=== PATIENT | male | born 1955 | race Caucasian/White ===

== ENCOUNTER 2017-03-07 07:28 | Day surgery (SDC) | payer OTHER ==
[2017-03-06 08:13] VITALS: BMI 28.7
[~2017-03-07 07:28] MED LIST: DEXAMETHASONE SOD PHOSPHATE 10 MG/ML 1 ML VIAL IV ONE; HEPARIN SODIUM,PORCINE 5,000 UNIT/ML 1 ML VIAL SQ ONE; HYDROmorphone 1 MG/ML 1 ML SYRINGE IVP PRN; LIDOCAINE 1% 20 ML VIAL (10MG/ML) FOR IV START INTRADERMA PRN; MIDAZOLAM 2 MG/2 ML VIAL IV PRN; ONDANSETRON 4 MG/2 ML VIAL IVP ONE; SCOPOLAMINE 1.5MG/72HR PATCH TRANSDERM ONE; ceFAZolin 2 GM in SODIUM CHLORIDE 0.9% 100 ML IVPB ONE
[2017-03-07] MEDS: LACTATED RINGERS 1,000 ML IV SCH (07:45)
[2017-03-07] MEDS ORDERED: SUCCINYLCHOLINE CHLORIDE 100 MG/5 ML SYR IV ONE (08:50)
[2017-03-07] MEDS ORDERED: PROPOFOL 10 MG/ML 20 ML VIAL IV ONE (08:50)
[2017-03-07] MEDS ORDERED: HYDROmorphone (PF) 1 MG/ML ONE (08:50)
[2017-03-07] MEDS ORDERED: GLYCOPYRROLATE 0.2 MG/ML 2 ML VIAL ONE (08:50)
[2017-03-07] MEDS ORDERED: ROCURONIUM BROMIDE 10 MG/ML 10 ML VIAL IV ONE (08:50)
[2017-03-07] MEDS ORDERED: NEOSTIGMINE 1 MG/ML 10 ML VIAL ONE (08:50)
[2017-03-07] MEDS ORDERED: LIDOCAINE 1% INJ 10MG/ML (20 ML MDV) ONE (08:50)
[2017-03-07] MEDS ORDERED: fentaNYL (PF) 50 MCG/ML 2 ML AMP ONE (08:50)
[2017-03-07] MEDS ORDERED: ePHEDrine 50 MG/ML 1 ML AMP ONE (08:50)
[2017-03-07] MEDS ORDERED: MIDAZOLAM 2 MG/2 ML VIAL ONE (08:50)
[2017-03-07] MEDS ORDERED: BUPIVACAIN-EPI 0.25%-1:200,000 30 ML VIAL SQ ONE ×2 (09:23)
[2017-03-07 11:19] VITALS: TEMP 99.2
[2017-03-07 11:22] VITALS: RESP 18
--- NOTE | 2017-03-07 11:25 | P.OP ---
Date of Procedure: 03/07/17 Preoperative Diagnosis: Left inguinal hernia Postoperative Diagnosis: Left sliding inguinal hernia containing sigmoid colon Procedure(s) Performed: Robotic assisted laparoscopic left inguinal hernia repair with mesh Implants: Covidien progrip Anesthesia: CISCO local Surgeon: Nupur Hoffman Pathology: none sent Condition: stable Disposition: PACU Indications for Procedure: 61 years old male presents with left inguinal hernia. Informed consent obtained and he elected to undergo robotic-assisted laparoscopic left inguinal hernia repair with mesh possible bilateral. Operative Findings: Left large indirect inguinal hernia containing sigmoid colon Description of Procedure: The patient was brought to the operating room and placed in supine position. General anesthesia with endotracheal intubation was performed as per anesthesia team. Both arms were tucked against the abdominal wall and was positioned in lithotomy using yellowfin stirrups. A mejia catheter was inserted under sterile aseptic precautions. Chlorhexidine was used to prep the skin followed by application of sterile drapes and Ioban dressing. A timeout was performed to verify correct patient, correct procedure and correct side. Patient was confirmed to receive perioperative IV antibiotics, subcutaneous heparin 5000 units and bilateral SCDs were placed. A 2 mm skin incision was made in the left subcostal area and Veress needle was inserted to establish pneumoperitoneum to a pressure of 15 mmHg. A 1.5 cm supraumbilical incision was made which was deepened through the subcutaneous tissue . Two additional 8 mm skin incisions were made on either side of the midline approximately 8 cm away. A 5 mm 30 laparoscope was used to enter the peritoneum using direct Optiview technique. A 12 mm robotic trocar was inserted in the subumbilical area and 8 mm robotic trocars were inserted on either side of the midline. The patient was placed in Trendelenburg position and the robot was brought in between the legs. The robotic arms including the camera arm were docked on the trocars. The robotic prograsp and monopolar scissors were introduced via arm 1 and 2 respectively. Upon inspection of the peritoneal cavity, left indirect hernia was identified containing the sogmoid colon which was reduced using gentle traction and countertraction.The jones anatomical landmarks including the pubic symphysis, median and medial umbilical ligaments and bilateral epigastric vessels were identified. No direct or indirect hernia noted on the right side Using monopolar scissors a peritoneal flap was created extending medially from the median umbilical ligament and laterally to the direct hernia space. Using gentle traction and countertraction the flap was developed posteriorly. Loose fibrofatty tissue was bluntly dissected. Medially the dissection was carried along the Javid's ligament till pubic tubercle was identified. Care was taken to stay away from the urinary bladder. Dissection was carried out to leave the epigastric vessels against the anterior abdominal wall and laterally beyond the hernia defect. The direct hernia sac was completely reduced. The iliofemoral vessels were identified. The peritoneal reflection overlying the spermatic cord was also dissected off. Care was taken not to injure any gonadal vessels or spermatic cord. Enough inferior dissection was carried out 2 cm below the hernia defect. No indirect hernia noted. Laparoscopic Covidien progrip mesh was rolled and introduced through the 12 mm camera port. The rleft mesh was placed in the preperitoneal cavity with green portion overlying the pubic tubercle . The mesh was rolled upwards so that the mesh covered the direct , indirect inguinal hernia and the femoral hernia space without any kinks or folds. The peritoneal flap was then sutured to the cut edge of the peritoneum using continuous 2-0 V lock sutures. The hernia sacs were completely reduced and the mesh lay flat without any kinks or folds. The robotic arms were then undocked and 30 degree laparoscope was inserted. All the needles were removed from the abdominal cavity. The 12mm camera trocar site was closed with 2 transfascial sutures of 0 Vicryl. The sponge, instrument and needle count were correct x2. The skin was closed with interrupted sutures of 4-0 Monocryl. Dermabond skin glue was applied followed by Telfa and Tegaderm dressing. Mejia catheter was removed and scrotum was palpated to confirm the position of the testicles. The patient tolerated the procedure well and was taken to post anesthesia care unit in stable condition .
[2017-03-07] MEDS ORDERED: KETOROLAC 30 MG/ML 1 ML VIAL IVP ONE (11:40)
[2017-03-07 12:32] VITALS: BP 136/71; PULSE 86
== END 2017-03-07 13:45 | disposition home or self-care (01) ==
LOC: OR 07:28
PROVIDERS: ATTEND Surgery
DX: K40.90 Unilateral inguinal hernia, without obstruction or gangrene, not specified as recurrent (principal); I10 Essential (primary) hypertension; E78.5 Hyperlipidemia, unspecified; Z79.82 Long term (current) use of aspirin; Z79.899 Other long term (current) drug therapy; Z88.8 Allergy status to other drugs, medicaments and biological substances
CPT/HCPCS: 49650; S2900

== ENCOUNTER → 2017-05-10 | Outpatient (CLI) | payer OTHER ==
--- NOTE | 2017-05-10 16:50 | XR ---
EXAMINATION TYPE: XR chest 2V DATE OF EXAM: 05/10/2017 COMPARISON: 10/23/2015 HISTORY: Cough TECHNIQUE: Frontal and lateral views of the chest are obtained. FINDINGS: There is no heart failure nor pneumonic infiltrate. There is spurring in the thoracic spin e. Heart size is normal. There are no hilar masses. IMPRESSION: No active cardiopulmonary disease. No change.
== END | disposition home or self-care (01) ==
LOC: RADXRMAIN 16:21
PROVIDERS: ATTEND Family Medicine
DX: R05 Cough (principal)
CPT/HCPCS: 71020

== ENCOUNTER → 2017-11-22 | Outpatient (CLI) | payer OTHER ==
--- NOTE | 2017-11-28 10:33 | P.ARTDOP ---
Arterial Doppler LOWER EXTREMITY ARTERIAL DOPPLER: DATE OF SERVICE: 11/22/2017 Reason for study: Left leg weakness. Doppler waveforms: Multiphasic bilaterally throughout. Pulse volume recording: []. Pressure gradients: None. Ankle-brachial indices: Greater than 1 bilaterally. Toe pressures: [] on the right, [] on the left Impression: Normal study.
== END | disposition home or self-care (01) ==
LOC: RADUSMAIN 16:11
PROVIDERS: ATTEND Family Medicine
DX: G83.14 Monoplegia of lower limb affecting left nondominant side (principal)
CPT/HCPCS: 93922

== ENCOUNTER → 2017-12-20 | Outpatient (CLI) | payer OTHER ==
[2017-12-20 15:12] LABS: Blood Urea Nitrogen 20 mg/dL (9-20)
--- NOTE | 2017-12-20 16:32 | XR ---
Lumbar spine HISTORY: Left lower extremity and low back pain 3 views of the lumbar spine There is multilevel spondylosis. Lumbar vertebral bodies show preserved height and alignment. Loss of disc height is present greatest at L4-5 with associated vacuum phenomenon, loss of height also prese nt at L3-4, L5-S1. Sclerosis present in the posterior elements. Some sclerosis present at the sacroil iac joints may be due to stress changes. Atherosclerotic vascular calcifications are present. IMPRESSION: Degenerative disc disease and facet arthropathy. Additional findings above.
--- NOTE | 2017-12-20 16:42 | MR ---
EXAMINATION TYPE: MR brain wo/w con DATE OF EXAM: 12/20/2017 COMPARISON: Prior MRI brain October 25, 2015. CT brain October 23, 2015 HISTORY: cerebellar symptoms, dizziness and nausea. Monoplegia or paresis of lower limb per order. TECHNIQUE: Multiplanar, multisequence images of the brain and brainstem is performed without and with IV contras t, utilizing 10 mL intravenous Gadavist . FINDINGS: Diffusion weighted images demonstrate no evidence of a recent infarct or other diffusion ab normality. There is no worrisome extra-axial fluid collection. There is ventricular and sulcal promi nence consistent with mild diffuse cerebral atrophy. There are multifocal areas of T2 hyperintensity seen throughout the superficial, deep, and the periventricular white matter. Several fairly moderate- sized lesions measuring between 4 to 6 mm are present. Lesions are nonspecific in appearance and dist ribution. I estimate approximately 15-20 lesions. No significant change from prior MRI. Midline structures demonstrate normal morphology. The craniocervical junction appears within normal limits. Post contrast images demonstrate no abnormal enhancement. The dural venous sinuses appear pa tent. The globes are intact bilaterally. There is moderate mucosal thickening in ethmoid sinuses bila terally on current study. There is mild mucosal thickening inferior bilateral maxillary sinuses. Ther e is [id number] mucosal thickening in dominant sphenoid sinus and mild mucosal thickening in in ferior left frontal sinus on current study. IMPRESSION: 1. No evidence of a recent infarct. 2. Background mild diffuse cerebral atrophy and mild to moderate nonspecific white matter changes mos t likely a basis of product of chronic small vessel ischemic change in patient of this age. 3. Chronic paranasal sinus disease as detailed above, more prominent than prior MRI.
== END | disposition home or self-care (01) ==
LOC: RADMRIMAIN 14:44
PROVIDERS: ATTEND Physician Assistant
DX: G31.9 Degenerative disease of nervous system, unspecified (principal); R90.89 Other abnormal findings on diagnostic imaging of central nervous system; M51.36 Other intervertebral disc degeneration, lumbar region; M47.816 Spondylosis without myelopathy or radiculopathy, lumbar region; M46.86 Other specified inflammatory spondylopathies, lumbar region; G95.89 Other specified diseases of spinal cord; G83.14 Monoplegia of lower limb affecting left nondominant side
CPT/HCPCS: 82565; 84520; 72100; 70553; A9581

== ENCOUNTER → 2018-05-28 | Outpatient (CLI) | payer OTHER ==
--- NOTE | 2018-05-28 15:23 | US ---
EXAMINATION TYPE: US extremity nonvasc mass LT DATE OF EXAM: 05/28/2018 COMPARISON: NONE CLINICAL HISTORY: R22.40 swelling/mass/lump left thigh. Patient noticed lump on posterior left thigh two months ago, pain now radiates from lump. Slight skin discoloration at site. 1.0 x 0.8 x 0.5cm well circumscribed, mixed lesion, non vascular, that could represent sebaceous cyst versus other etiology IMPRESSION: Dermal-based lesion as noted above suspected debris-filled sebaceous cysts or other benign dermatologic etiology. MTDD
== END | disposition home or self-care (01) ==
LOC: RADUSWWP 14:46
PROVIDERS: ATTEND Family Medicine
DX: L98.9 Disorder of the skin and subcutaneous tissue, unspecified (principal)

== ENCOUNTER 2018-08-23 05:59 | Day surgery (SDC) | payer OTHER ==
[2018-08-16 13:43] VITALS: BMI 28.7
[~2018-08-23 05:59] MED LIST changes: -DEXAMETHASONE SOD PHOSPHATE 10 MG/ML 1 ML VIAL IV ONE; -HEPARIN SODIUM,PORCINE 5,000 UNIT/ML 1 ML VIAL SQ ONE; -HYDROmorphone 1 MG/ML 1 ML SYRINGE IVP PRN; -LIDOCAINE 1% 20 ML VIAL (10MG/ML) FOR IV START INTRADERMA PRN; -MIDAZOLAM 2 MG/2 ML VIAL IV PRN; -ONDANSETRON 4 MG/2 ML VIAL IVP ONE; +Pre Op ABX Message 1 EACH MISC MISCELLANE ONE; -SCOPOLAMINE 1.5MG/72HR PATCH TRANSDERM ONE; -ceFAZolin 2 GM in SODIUM CHLORIDE 0.9% 100 ML IVPB ONE
[2018-08-23] MEDS ORDERED: MIDAZOLAM 2 MG/2 ML VIAL IV PRN (06:00)
[2018-08-23] MEDS ORDERED: HYDROmorphone 0.5 MG/0.5 ML SYRINGE IVP PRN (06:00)
[2018-08-23] MEDS ORDERED: ONDANSETRON 4 MG/2 ML VIAL IVP ONE (06:00)
[2018-08-23] MEDS ORDERED: LACTATED RINGERS 1,000 ML IV SCH (06:00)
[2018-08-23] MEDS ORDERED: SCOPOLAMINE 1.5MG/72HR PATCH TRANSDERM ONE (06:00)
[2018-08-23] MEDS ORDERED: DEXAMETHASONE SOD PHOSPHATE 10 MG/ML 1 ML VIAL IV ONE (06:00)
[2018-08-23 06:26] VITALS: TEMP 98.3
[2018-08-23] MEDS ORDERED: LIDOCAINE 1% 20 ML VIAL (10MG/ML) FOR IV START INTRADERMA ONE (06:38)
[2018-08-23] MEDS ORDERED: ceFAZolin IN SWFI 2 GM/20 ML SYRINGE IVP STA (07:24)
--- NOTE | 2018-08-23 07:26 | P.GSHP ---
History of Present Illness H&P Date: 08/23/18 CHIEF COMPLAINT: Painful lesions along the left posterior thigh HISTORY OF PRESENT ILLNESS: The patient is a 62 year-old male with history of lipomas of the left posterior proximal thigh. He presents today for surgical excision. PAST MEDICAL HISTORY: Please see list. PAST SURGICAL HISTORY: Please see list. MEDICATIONS: Please see list. ALLERGIES: Please see list. SOCIAL HISTORY: No illicit drug use FAMILY HISTORY: No reports of Crohn disease or ulcerative colitis. REVIEW OF ORGAN SYSTEMS: CONSTITUTIONAL: No reports of fevers or chills. GI: Denies any blood in stools or constipation. PHYSICAL EXAM: VITAL SIGNS: Stable Musculoskeletal: Approximately 2 cm lipomas, superficial, along the left posterior thigh. SKIN: Lesion identified along bilateral thighs. GENERAL: Well developed and in no acute distress. Pleasant. HEENT: No sclera icterus. Extraocular movements grossly intact. Moist buccal mucosa. Head is atraumatic, normocephalic. Hears conversational speech. No nasal drainage. NECK: Supple without lymphadenopathy. No JV distention. CHEST: Non-labored respirations and equal bilateral excursions. CARDIOVASCULAR: Regular rate and rhythm. Palpable 2+ radial pulses. ABDOMEN: Soft. Non-tender. Nondistended. NEUROLOGIC: No focal or lateralizing signs. PSYCH: Appropriate affect. Alert and oriented to person, place and time. ASSESSMENT: 1. Lipomas along the left posterior thigh. PLAN: 1. Will proceed of excision of subcutaneous tumors along the posterior left thigh. 2. DVT prophylaxis. 3. Antibiotic prophylaxis. 4. Time of recovery, at least one week. Past Medical History Past Medical History: CVA/TIA, Hyperlipidemia, Hypertension Additional Past Medical History / Comment(s): pt told by navid he has had "mini strokes", pain left leg, History of Any Multi-Drug Resistant Organisms: None Reported Past Surgical History: Hernia Repair Additional Past Surgical History / Comment(s): hemorrhoidectomy, malinda cataracts Past Anesthesia/Blood Transfusion Reactions: No Reported Reaction Smoking Status: Never smoker - Past Family History Father Family Medical History: Chest Pain / Angina, Myocardial Infarction ([place]) Mother History Unknown: Yes Family Medical History: No Reported History Medications and Allergies Home Medications Medication Instructions Recorded Confirmed Type Atorvastatin [Lipitor] 20 mg PO HS 10/23/15 08/23/18 History Multivitamins, Thera [Multivitamin 1 tab PO DAILY 10/23/15 08/16/18 History (formulary)] Aspirin 325 mg PO DAILY 03/06/17 08/16/18 History Losartan Potassium [Cozaar] 50 mg PO DAILY 03/06/17 08/16/18 History Cetirizine HCl [Zyrtec] 5 mg PO DAILY PRN 08/16/18 08/23/18 History Fish Oil/Dha/Epa [Fish Oil 1,200 1 each PO DAILY 08/16/18 08/16/18 History mg Fish Oil] Ibuprofen [Motrin Ib] 1,000 mg PO DAILY PRN 08/16/18 08/16/18 History Magnesium Oxide [Mag-Ox] 250 mg PO BID 08/16/18 08/23/18 History Naproxen 500 mg PO DAILY 08/16/18 08/16/18 History Pregabalin [Lyrica] 150 mg PO BID 08/16/18 08/23/18 History Vitamin C/Biotin [Hair, Skin and 1 tab PO DAILY 08/16/18 08/16/18 History Nails] amLODIPine BESYLATE [Norvasc] 10 mg PO DAILY 08/16/18 08/16/18 History diphenhydrAMINE [Benadryl] 50 mg PO HS PRN 08/16/18 08/23/18 History Allergies Allergy/AdvReac Type Severity Reaction Status Date / Time lisinopril Allergy Rash/Hives Verified 08/23/18 06:14 Surgical - Exam Vital Signs Temp Pulse Resp BP Pulse Ox 98.3 F 82 18 135/65 96 08/23/18 06:24 08/23/18 06:24 08/23/18 06:24 08/23/18 06:24 08/23/18 06:24
[2018-08-23] MEDS ORDERED: MIDAZOLAM 2 MG/2 ML VIAL ONE (07:35)
[2018-08-23] MEDS ORDERED: PROPOFOL 10 MG/ML 20 ML VIAL IV ONE (07:35)
[2018-08-23] MEDS ORDERED: fentaNYL (PF) 50 MCG/ML 2 ML AMP ONE (07:35)
[2018-08-23] MEDS ORDERED: KETOROLAC 30 MG/ML 1 ML VIAL ONE (07:35)
[2018-08-23] MEDS ORDERED: BUPIVACAIN-EPI 0.25%-1:200,000 30 ML VIAL SQ ONE (08:00)
[2018-08-23 08:39] VITALS: BP 136/78; PULSE 68; RESP 16
--- NOTE | 2018-08-23 08:58 | P.OP ---
Date of Procedure: 08/23/18 Description of Procedure: SURGEON: BRANDY ESCALONA MD GAMBLING BROKER: NONE. PREOPERATIVE DIAGNOSES: 1. Left posterior proximal thigh tumor, subcutaneous POSTOPERATIVE DIAGNOSES: 1. Left posterior proximal thigh tumor, subcutaneous 2 x 6 cm OPERATION: 1. Excision of left posterior proximal thigh subcutaneous tumor, 6 x 2 cm. 2. Complex closure of left left posterior proximal thigh incision, 8 cm. ANESTHESIA: MAC with local ESTIMATED BLOOD LOSS: 5 mL. SPECIMENS REMOVED: 1. Left posterior proximal thigh subcutaneous tumor, short lateral and long superior silk sutures COMPLICATIONS: None. INDICATIONS: The patient is a 62-year-old male who presents with left left posterior proximal thigh subcutaneous tumor. Surgical options, including excision was discussed. Benefits and risks were described. Informed consent was obtained. DESCRIPTION OF PROCEDURE: Patient was brought into the operating room, laid in left lateral decubitus position. After adequate IV sedation, the left posterior thigh was prepped and draped in standard sterile fashion using ChloraPrep. A timeout protocol was confirmed with the surgical team regarding patient's name including procedures to be performed. Preoperative medications was administered. Next, a local field block was administered. The left lower leg mass was measured using a ruler with borders marked with indelible marker. An elliptical incision of 6 x 2 cm in size into the dermis followed by circumferential dissection using electro-Bovie cautery into the subcutaneous tissue. Hemostasis was checked with electrocautery cautery. The wound was closed in multiple layers including 0 Vicryl for the deep subcutaneous tissue. 3-0 Vicryl was placed interrupted along the deep dermis. The skin was closed using 4-0 Monocryl. Dermabond tape equivalent including liquid glue and tape were used as the final fourth layer. The skin was cleansed. Optifoam dressing was placed. At the end of the procedure, needle, sponge, and instrument count had been verified correct by the certified surgical tech/first assistant. The patient was taken to the postanesthesia care unit in stable condition. FINDINGS: 1. Left posterior proximal thigh excision, 6 x 2 cm subcutaneous tissue Plan - Discharge Summary New Discharge Prescriptions: New Ibuprofen [Motrin] 600 mg PO Q8HR PRN #20 tab PRN Reason: Pain No Action Multivitamins, Thera [Multivitamin (formulary)] 1 tab PO DAILY Atorvastatin [Lipitor] 20 mg PO HS Aspirin 325 mg PO DAILY Losartan Potassium [Cozaar] 50 mg PO DAILY Vitamin C/Biotin [Hair, Skin and Nails] 1 tab PO DAILY Fish Oil/Dha/Epa [Fish Oil 1,200 mg Fish Oil] 1 each PO DAILY Magnesium Oxide [Mag-Ox] 250 mg PO BID Naproxen 500 mg PO DAILY amLODIPine BESYLATE [Norvasc] 10 mg PO DAILY Pregabalin [Lyrica] 150 mg PO BID Ibuprofen [Motrin Ib] 1,000 mg PO DAILY PRN PRN Reason: Pain Cetirizine HCl [Zyrtec] 5 mg PO DAILY PRN PRN Reason: Allergy Symptoms diphenhydrAMINE [Benadryl] 50 mg PO HS PRN PRN Reason: sleep Discharge Medication List Atorvastatin [Lipitor] 20 mg PO HS 10/23/15 [History] Multivitamins, Thera [Multivitamin (formulary)] 1 tab PO DAILY 10/23/15 [History ] Aspirin 325 mg PO DAILY 03/06/17 [History] Losartan Potassium [Cozaar] 50 mg PO DAILY 03/06/17 [History] Cetirizine HCl [Zyrtec] 5 mg PO DAILY PRN 08/16/18 [History] Fish Oil/Dha/Epa [Fish Oil 1,200 mg Fish Oil] 1 each PO DAILY 08/16/18 [History] Ibuprofen [Motrin Ib] 1,000 mg PO DAILY PRN 08/16/18 [History] Magnesium Oxide [Mag-Ox] 250 mg PO BID 08/16/18 [History] Naproxen 500 mg PO DAILY 08/16/18 [History] Pregabalin [Lyrica] 150 mg PO BID 08/16/18 [History] Vitamin C/Biotin [Hair, Skin and Nails] 1 tab PO DAILY 08/16/18 [History] amLODIPine BESYLATE [Norvasc] 10 mg PO DAILY 08/16/18 [History] diphenhydrAMINE [Benadryl] 50 mg PO HS PRN 08/16/18 [History] Ibuprofen [Motrin] 600 mg PO Q8HR PRN #20 tab 08/23/18 [Rx] Follow up Appointment(s)/Referral(s): Brandy Escalona MD [STAFF PHYSICIAN] - 08/26/18 4:15 pm Patient Instructions/Handouts: Wound Healing and Your Diet (DC) Activity/Diet/Wound Care/Special Instructions: Activities as tolerated.DO NOT REMOVE DRESSING. May shower. No bath tub soaks. Discharge Disposition: HOME SELF-CARE
== END 2018-08-23 08:59 | disposition home or self-care (01) ==
LOC: OR 05:59
PROVIDERS: ATTEND Surgery Plastic and Reconstructive Surgery
DX: L72.0 Epidermal cyst (principal); I10 Essential (primary) hypertension; E78.5 Hyperlipidemia, unspecified; Z86.73 Personal history of transient ischemic attack (TIA), and cerebral infarction without residual deficits; Z79.82 Long term (current) use of aspirin; Z79.1 Long term (current) use of non-steroidal anti-inflammatories (NSAID); Z79.899 Other long term (current) drug therapy; Z88.8 Allergy status to other drugs, medicaments and biological substances
CPT/HCPCS: 88304; 11406; 13121; 13122; J2250; J1100; J2405; J3010; J1885; J2704; J0690

== ENCOUNTER → 2018-08-30 | Outpatient (CLI) | payer OTHER ==
--- NOTE | 2018-08-30 15:47 | US ---
EXAMINATION TYPE: US thyroid st tissue head/neck DATE OF EXAM: 08/30/2018 COMPARISON: NONE CLINICAL HISTORY: R22.0 L neck mass. Palpable lump left neck EXAMINATION TYPE: US thyroid st tissue head/neck 3.0 x 2.4 x 2.7 cm complex cyst like area left neck with swirling debris on live scanning. IMPRESSION: 1. Large mass corresponding to the palpable region. Recommend contrast CT for additional evaluation. The exact location based on the ultrasound films is unclear which would af fect the differential diagnosis.
== END ==
LOC: RADUSWWP 15:25
PROVIDERS: ATTEND Surgery Plastic and Reconstructive Surgery
DX: R22.0 Localized swelling, mass and lump, head (principal)
CPT/HCPCS: 76536

== ENCOUNTER 2018-12-28 17:45 | Observation (INO) | payer MEDICARE, OTHER ==
[2018-12-28] MEDS ORDERED: SODIUM CHLORIDE 0.9% 500 ML 500 ML IV STA (18:17)
--- NOTE | 2018-12-28 18:26 | ED ---
URI HPI - General Chief Complaint: Upper Respiratory Infection Stated Complaint: FLU SYMPTOMS Time Seen by Provider: 12/28/18 18:11 Source: patient Mode of arrival: ambulatory Limitations: no limitations - History of Present Illness Initial Comments: 63-year-old male patient presents to the emergency department today for evaluation of shortness of breath and dizziness. Patient states he became sick with upper respiratory symptoms approximately 2 weeks ago. States that the nasal congestion and sore throat resolved however the cough has persisted. Patient states he is coughing up sputum but denies any hemoptysis. States that whenever he does any physical activity he becomes very dizzy and short of breath. He denies any wheezing. Denies any history of COPD or asthma. Denies history of smoking. Denies any recent long car rides however states that over the last week he has been sleeping more than usual up to 12 hours per day. States his had decreased appetite. Patient denies any recent rash, fever, chills , abdominal pain, nausea, vomiting, diarrhea, constipation, back pain, numbness , tingling, hematuria, dysuria, urinary urgency, urinary frequency, headache, visual changes, or any other complaints. - Related Data Home Medications Medication Instructions Recorded Confirmed Atorvastatin [Lipitor] 20 mg PO HS 10/23/15 08/23/18 Multivitamins, Thera [Multivitamin 1 tab PO DAILY 10/23/15 08/16/18 (formulary)] Aspirin 325 mg PO DAILY 03/06/17 08/16/18 Losartan Potassium [Cozaar] 50 mg PO DAILY 03/06/17 08/16/18 Cetirizine HCl [Zyrtec] 5 mg PO DAILY PRN 08/16/18 08/23/18 Fish Oil/Dha/Epa [Fish Oil 1,200 1 each PO DAILY 08/16/18 08/16/18 mg Fish Oil] Ibuprofen [Motrin Ib] 1,000 mg PO DAILY PRN 08/16/18 08/16/18 Magnesium Oxide [Mag-Ox] 250 mg PO BID 08/16/18 08/23/18 Naproxen 500 mg PO DAILY 08/16/18 08/16/18 Pregabalin [Lyrica] 150 mg PO BID 08/16/18 08/23/18 Vitamin C/Biotin [Hair, Skin and 1 tab PO DAILY 08/16/18 08/16/18 Nails] amLODIPine BESYLATE [Norvasc] 10 mg PO DAILY 08/16/18 08/16/18 diphenhydrAMINE [Benadryl] 50 mg PO HS PRN 08/16/18 08/23/18 Previous Rx's Medication Instructions Recorded Ibuprofen [Motrin] 600 mg PO Q8HR PRN #20 tab 08/23/18 Allergies Allergy/AdvReac Type Severity Reaction Status Date / Time lisinopril Allergy Rash/Hives Verified 12/28/18 18:09 Review of Systems ROS Statement: Those systems with pertinent positive or pertinent negative responses have been documented in the HPI. ROS Other: All systems not noted in ROS Statement are negative. Past Medical History Past Medical History: CVA/TIA, Hyperlipidemia, Hypertension Additional Past Medical History / Comment(s): pt told by [facility] he has had "mini strokes", pain left leg, History of Any Multi-Drug Resistant Organisms: None Reported Past Surgical History: Hernia Repair Additional Past Surgical History / Comment(s): hemorrhoidectomy, malinda cataracts, Past Anesthesia/Blood Transfusion Reactions: No Reported Reaction Past Psychological History: No Psychological Hx Reported Smoking Status: Never smoker Past Alcohol Use History: Occasional Past Drug Use History: None Reported - Past Family History Father Family Medical History: Chest Pain / Angina, Myocardial Infarction (OK) Mother History Unknown: Yes Family Medical History: No Reported History General Exam Limitations: no limitations General appearance: alert, in no apparent distress, other (Physical well- developed, well-nourished elderly male patient who appears short of breath. Vital signs upon presentation are temperature 98.3F, pulse 107, respirations 22 , blood pressure 112/68, pulse ox 94% on room air.) Eye exam: Present: normal appearance, PERRL, EOMI. Absent: scleral icterus, conjunctival injection, periorbital swelling ENT exam: Present: normal exam, normal oropharynx, mucous membranes moist, TM's normal bilaterally Neck exam: Present: normal inspection. Absent: tenderness, meningismus, lymphadenopathy Respiratory exam: Present: normal lung sounds bilaterally. Absent: respiratory distress, wheezes, rales, rhonchi, stridor Cardiovascular Exam: Present: regular rate, normal rhythm, normal heart sounds. Absent: systolic murmur, diastolic murmur, rubs, gallop, clicks GI/Abdominal exam: Present: soft, normal bowel sounds. Absent: distended, tenderness, guarding, rebound, rigid Neurological exam: Present: alert, oriented X3, CN II-XII intact Psychiatric exam: Present: normal affect, normal mood Skin exam: Present: warm, dry, intact, normal color. Absent: rash Course Vital Signs 12/28/18 12/28/18 12/28/18 18:06 18:47 20:05 Temperature 98.3 F Pulse Rate 107 H 82 75 Respiratory 22 16 16 Rate Blood Pressure 112/68 134/82 145/90 O2 Sat by Pulse 94 L 98 97 Oximetry Medical Decision Making - Medical Decision Making 63 year-old male patient presents to the emergency department today for evaluation of progressively worsening dyspnea and dizziness. Physical examination did reveal diminished lung sounds bilaterally. Patient was obviously short of breath with tachypnea and accessory muscle use. Neurological exam was intact with no focal deficits. Labs reviewed and did show evidence of acute renal failure most likely related to dehydration as patient has had diminished food and fluid intake over the past several days. D- dimer negative. Initial troponin negative. Patient remains feeling dyspneic upon reevaluation. We'll admit to the hospital for possible COPD as well as rehydration and serial troponins. Did discuss findings, results, and plan with the patient, he is agreeable. - Lab Data Result diagrams: 12/28/18 18:40 12/28/18 18:40 Lab Results 12/28/18 12/28/18 12/28/18 Range/Units 18:40 18:40 18:40 WBC 7.0 (3.8-10.6) k/uL RBC 4.72 (4.30-5.90) m/uL Hgb 15.0 (13.0-17.5) gm/dL Hct 44.3 (39.0-53.0) % MCV 93.7 (80.0-100.0) fL MCH 31.9 (25.0-35.0) pg MCHC 34.0 (31.0-37.0) g/dL RDW 12.8 (11.5-15.5) % Plt Count 211 (150-450) k/uL Neutrophils % 65 % Lymphocytes % 23 % Monocytes % 8 % Eosinophils % 2 % Basophils % 1 % Neutrophils # 4.5 (1.3-7.7) k/uL Lymphocytes # 1.6 (1.0-4.8) k/uL Monocytes # 0.6 (0-1.0) k/uL Eosinophils # 0.1 (0-0.7) k/uL Basophils # 0.0 (0-0.2) k/uL PT (9.0-12.0) sec INR (<1.2) APTT (22.0-30.0) sec D-Dimer (<0.60) mg/L FEU Sodium 141 (137-145) mmol/L Potassium 4.1 (3.5-5.1) mmol/L Chloride 109 H (98-107) mmol/L Carbon Dioxide 20 L (22-30) mmol/L Anion Gap 12 mmol/L BUN 26 H (9-20) mg/dL Creatinine 1.68 H (0.66-1.25) mg/dL Est GFR (CKD-EPI)AfAm 49 (>60 ml/min/1.73 sqM) Est GFR (CKD-EPI)NonAf 42 (>60 ml/min/1.73 sqM) Glucose 116 H (74-99) mg/dL Calcium 9.5 (8.4-10.2) mg/dL Total Bilirubin 0.7 (0.2-1.3) mg/dL AST 60 H (17-59) U/L ALT 49 (21-72) U/L Alkaline Phosphatase 131 H (38-126) U/L Total Creatine Kinase 451 H (55-170) U/L CK-MB (CK-2) 3.2 H (0.0-2.4) ng/mL CK-MB (CK-2) Rel Index 0.7 Troponin I <0.012 (0.000-0.034) ng/mL Total Protein 7.8 (6.3-8.2) g/dL Albumin 4.4 (3.5-5.0) g/dL 12/28/18 Range/Units 18:40 WBC (3.8-10.6) k/uL RBC (4.30-5.90) m/uL Hgb (13.0-17.5) gm/dL Hct (39.0-53.0) % MCV (80.0-100.0) fL MCH (25.0-35.0) pg MCHC (31.0-37.0) g/dL RDW (11.5-15.5) % Plt Count (150-450) k/uL Neutrophils % % Lymphocytes % % Monocytes % % Eosinophils % % Basophils % % Neutrophils # (1.3-7.7) k/uL Lymphocytes # (1.0-4.8) k/uL Monocytes # (0-1.0) k/uL Eosinophils # (0-0.7) k/uL Basophils # (0-0.2) k/uL PT 9.9 (9.0-12.0) sec INR 0.9 (<1.2) APTT 27.1 (22.0-30.0) sec D-Dimer 0.48 (<0.60) mg/L FEU Sodium (137-145) mmol/L Potassium (3.5-5.1) mmol/L Chloride (98-107) mmol/L Carbon Dioxide (22-30) mmol/L Anion Gap mmol/L BUN (9-20) mg/dL Creatinine (0.66-1.25) mg/dL Est GFR (CKD-EPI)AfAm (>60 ml/min/1.73 sqM) Est GFR (CKD-EPI)NonAf (>60 ml/min/1.73 sqM) Glucose (74-99) mg/dL Calcium (8.4-10.2) mg/dL Total Bilirubin (0.2-1.3) mg/dL AST (17-59) U/L ALT (21-72) U/L Alkaline Phosphatase (38-126) U/L Total Creatine Kinase (55-170) U/L CK-MB (CK-2) (0.0-2.4) ng/mL CK-MB (CK-2) Rel Index Troponin I (0.000-0.034) ng/mL Total Protein (6.3-8.2) g/dL Albumin (3.5-5.0) g/dL - EKG Data -: EKG Interpreted by Tn EKG Comments: EKG obtained at 1844 shows normal sinus rhythm with a ventricular rate is 77, MN interval 190, QRS duration 100, QT 382, QTc 432. No evidence of ST elevation or depression. - Radiology Data Radiology results: report reviewed, image reviewed Two-view x-ray of the chest is obtained. Report reviewed in its entirety. Does show flattening of the diaphragms and inflation consistent with COPD. Impression by Dr. Chin shows no acute cardiopulmonary process. Disposition Clinical Impression: COPD (chronic obstructive pulmonary disease), Dehydration, Dyspnea Disposition: ADMITTED IP TO THIS HOSP Condition: Serious Referrals: Fransico Johnson DO [Primary Care Provider] - 1-2 days Decision to Admit Reason: Admit from EC Decision Date: 12/28/18 Decision Time: 20:28
[2018-12-28 19:06] LABS: Basophils % (A) 1 %; Eosinophils # (A) 0.1 k/uL (0-0.7); Eosinophils % (A) 2 %; HCT 44.3 % (39.0-53.0); Lymphocytes # (A) 1.6 k/uL (1.0-4.8); Lymphocytes % (A) 23 %; MCH 31.9 pg (25.0-35.0); MCV 93.7 fL (80.0-100.0); Mean Platelet Volume 7.4; Monocytes # (A) 0.6 k/uL (0-1.0); Monocytes % (A) 8 %; Neutrophils # (A) 4.5 k/uL (1.3-7.7); Neutrophils % (A) 65 %; Platelet Count 211 k/uL (150-450); RBC 4.72 m/uL (4.30-5.90); RDW 12.8 % (11.5-15.5)
--- NOTE | 2018-12-28 19:14 | XR ---
EXAMINATION TYPE: XR chest 2V DATE OF EXAM: 12/28/2018 COMPARISON: 05/08/2017 HISTORY: Lethargy, cough, and syncope TECHNIQUE: Frontal and lateral views of the chest are obtained. FINDINGS: There is no focal air space opacity, pleural effusion, or pneumothorax seen. Pulmonary hy perinflation with some flattening of the diaphragms on the lateral view suggests underlying COPD. The cardiac silhouette size is within normal limits. The osseous structures are intact. Moderate multi level degenerative changes of the spine are seen. IMPRESSION: No acute cardiopulmonary process.
[2018-12-28 19:19] LABS: D-Dimer 0.48 mg/L FEU (<0.60); INR 0.9 (<1.2); Partial Thromboplastin Time 27.1 sec (22.0-30.0); Prothrombin Time 9.9 sec (9.0-12.0)
[2018-12-28 19:20] LABS: Albumin 4.4 g/dL (3.5-5.0); Calcium 9.5 mg/dL (8.4-10.2); Creatine Kinase 451 U/L (55-170); Potassium 4.1 mmol/L (3.5-5.1); Total Bilirubin 0.7 mg/dL (0.2-1.3); Total Protein 7.8 g/dL (6.3-8.2)
[2018-12-28 19:31] LABS: Creatine Kinase MB 3.2 ng/mL (0.0-2.4); Troponin I <0.012 ng/mL (0.000-0.034)
[2018-12-28] MEDS ORDERED: SODIUM CHLORIDE 0.9% 1,000 ML IV ONE (19:55)
[2018-12-28] MEDS ORDERED: methylPREDNISolone SOD SUCCI 125 MG/2 ML VIAL IV STA (20:24)
[2018-12-28] MEDS ORDERED: IPRATROPIUM-ALBUTEROL 3 ML NEB INHALATION PRN (20:27)
[2018-12-28] MEDS: IPRATROPIUM-ALBUTEROL 3 ML NEB INHALATION SCH (23:06)
[2018-12-28] MEDS ORDERED: ATORVASTATIN 20 MG TAB PO SCH (23:15)
[2018-12-28] MEDS: MAGNESIUM OXIDE 400 MG TAB PO SCH (23:38)
[2018-12-28] MEDS: methylPREDNISolone SOD SUCCI 125 MG/2 ML VIAL IV SCH (23:39)
[2018-12-28] MEDS: NAPROXEN 250 MG TAB PO SCH (23:39)
[2018-12-29] MEDS: IPRATROPIUM-ALBUTEROL 3 ML NEB INHALATION SCH ×3 (03:50→11:09)
[2018-12-29] MEDS: SODIUM CHLORIDE 0.9% 1,000 ML IV SCH ×2 (05:07→12:09)
[2018-12-29] MEDS: methylPREDNISolone SOD SUCCI 125 MG/2 ML VIAL IV SCH ×2 (06:51→12:09)
[2018-12-29 07:04] LABS: Basophils % (A) 0 %; Eosinophils % (A) 0 %; HCT 42.2 % (39.0-53.0); HGB 14.2 gm/dL (13.0-17.5); Lymphocytes # (A) 0.5 k/uL (1.0-4.8); Lymphocytes % (A) 15 %; MCH 31.8 pg (25.0-35.0); MCHC 33.6 g/dL (31.0-37.0); MCV 94.8 fL (80.0-100.0); Mean Platelet Volume 6.8; Monocytes # (A) 0.1 k/uL (0-1.0); Monocytes % (A) 2 %; Neutrophils % (A) 80 %; Platelet Count 212 k/uL (150-450); RBC 4.45 m/uL (4.30-5.90); RDW 12.8 % (11.5-15.5); WBC 3.7 k/uL (3.8-10.6)
[2018-12-29 07:13] LABS: Anion Gap 9 mmol/L; Blood Urea Nitrogen 19 mg/dL (9-20); Calcium 8.9 mg/dL (8.4-10.2); Carbon Dioxide 21 mmol/L (22-30); Chloride 110 mmol/L (98-107); Glucose 151 mg/dL (74-99); Potassium 4.8 mmol/L (3.5-5.1); Sodium 140 mmol/L (137-145)
[2018-12-29 08:08] VITALS: RESP 18
[2018-12-29] MEDS: MAGNESIUM OXIDE 400 MG TAB PO SCH (08:43)
[2018-12-29] MEDS: NAPROXEN 250 MG TAB PO SCH (08:43)
[2018-12-29] MEDS ORDERED: LOSARTAN 50 MG TAB PO SCH (09:00)
[2018-12-29] MEDS ORDERED: ASPIRIN 325 MG TAB PO SCH (09:00)
[2018-12-29] MEDS ORDERED: NON-FORMULARY DRUG (Biotin [Biotin] 5 MG) PO SCH (09:00)
[2018-12-29] MEDS ORDERED: NON-FORMULARY DRUG (Fish Oil/Dha/Epa [Fish Oil 1,200 Mg Fish Oil] 1 CAP) PO SCH (09:00)
[2018-12-29] MEDS ORDERED: amLODIPine 10 MG TAB PO SCH (09:00)
[2018-12-29] MEDS ORDERED: MULTIVITAMINS, THERA 1 EACH TAB PO SCH (12:00)
[2018-12-29 12:14] VITALS: BP 129/69; PULSE 90; TEMP 97.5
--- NOTE | 2018-12-29 14:57 | DS ---
DISCHARGE SUMMARY HISTORY/PHYSICAL AND DISCHARGE SUMMARY: DATE OF ADMISSION: 12/28/2018 DATE OF DISCHARGE: 12/29/2018 DATE OF SERVICE: 12/29/2018. PRESENTING COMPLAINT: Weak and tired. HISTORY OF PRESENTING COMPLAINT: This is a pleasant 63 -year-old patient of Dr. Johnson who chronic stable medical conditions include hypertension, hyperlipidemia, osteoarthritis. The patient presents for one week, weak, tired and run down, occasional chills, no edema, slight cough, felt to get a viral syndrome, really did eat well last week. Just run down and presented to the ER and was found to have a BUN and creatinine of 26/1.68. The patient's last creatinine was normal at 0.85 on December 30, 2017. The patient denies any cardiac history. No chest pain. REVIEW OF SYSTEMS: CONSTITUTIONAL: Tired. HEENT: None. RESPIRATORY: Mild shortness of breath. CARDIOVASCULAR none. GASTROINTESTINAL: None. GENITOURINARY none. MUSCULOSKELETAL: Pain in different joints. DERMATOLOGICAL, HEMATOLOGIC, LYMPHATICS: none. PSYCHIATRY none. NEUROLOGICAL: None. PAST MEDICAL HISTORY: TIA, hyperlipidemia, hypertension. PAST SURGICAL HISTORY: Hernia repair, hemorrhoidectomy, bilateral cataract. SOCIAL HISTORY: Does not smoke. Alcohol occasionally. 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 Lives by himself. FAMILY HISTORY: Diabetes. HOME MEDICATIONS: 1. Norvasc 10 mg a day. 2. Naproxen 500 mg b.i.d. 3. Multivitamin 1 tablet p.o. daily. 4. Magnesium oxide 250 mg b.i.d. 5. Cozaar 50 mg daily. 6. Fish oil 1 capsule p.o. daily. 7. Biotin 5 mg a day. 8. Aspirin 325 mg daily. 9. Lipitor 20 mg q.h.s. ALLERGIES: LISINOPRIL. PHYSICAL EXAMINATION: VITAL SIGNS: Vital signs on presentation: Temperature 98.3, pulse 107, respiration 22, blood pressure 112/68, pulse ox 94 percent on room air. GENERAL APPEARANCE: Average built, BMI 28.7. Lying in bed comfortable. EYES: Pupils equal. Conjunctivae normal. HEENT external appearance of nose and ears normal. Oral cavity normal. NECK: JVD not raised. Mass not palpable. RESPIRATORY: Effort normal. LUNGS are clear. CARDIOVASCULAR: 1st and 2nd sounds normal. No edema. ABDOMEN: Soft, nontender. Liver and spleen not palpable. LYMPHATICS: No lymph nodes palpable in the neck or axilla. PSYCHIATRY: Alert and oriented x3. Mood and affect normal. NEUROLOGICAL: Pupils equal. Cranial nerves grossly intact. Power and sensation grossly intact. MUSCULOSKELETAL: Evidence of osteoarthritis especially in the hands. INVESTIGATIONS: Admission labs: White count 7, hemoglobin 15.0, potassium 4.1, BUN 26, creatinine 1.68, repeat this morning is 19/1.011. Troponin x3 negative. EKG tracing personally reviewed by me shows normal sinus rhythm. Chest x-ray film personally reviewed by me shows lung west to be clear. Evidence of osteoarthritis with lipping on the vertebral spine. ASSESSMENT: 1. Acute renal failure likely prerenal with possible acute tubular necrosis, the patient being on naproxen and decreased oral intake. 2. Acute respiratory tract viral syndrome causing patient to have poor oral intake. 3. Essential hypertension. 4. Hyperlipidemia. 5. Primary osteoarthritis. PLAN: The patient had been started on naproxen recently. We will discontinue the same and have the patient use it on a p.r.n. basis. The patient did get IV fluids. Creatinine has now come down to normal. We will give a few tablets of bicarbonate. The patient will be discharged home on the home medications except for naproxen will be changed to p.r.n. Care was discussed with the patient. The patient ate his breakfast and lunch really well. Did get IV fluids. Overall feeling much better. FOLLOWUP: Follow up with Dr. Johnson in [address] Johnson. This is both a history/physical and discharge summary. MMODL / IJN: [id number] /
== END 2018-12-29 15:15 | disposition home or self-care (01) ==
LOC: EC 17:45 → 1SOBS 20:28
PROVIDERS: ADMIT Hospitalist; ATTEND Hospitalist
DX: N17.9 Acute kidney failure, unspecified (principal); J06.9 Acute upper respiratory infection, unspecified; E86.0 Dehydration; I10 Essential (primary) hypertension; E78.5 Hyperlipidemia, unspecified; M19.042 Primary osteoarthritis, left hand; M19.041 Primary osteoarthritis, right hand; Z79.1 Long term (current) use of non-steroidal anti-inflammatories (NSAID); Z79.899 Other long term (current) drug therapy; Z86.73 Personal history of transient ischemic attack (TIA), and cerebral infarction without residual deficits; Z98.42 Cataract extraction status, left eye; Z98.41 Cataract extraction status, right eye; Z79.82 Long term (current) use of aspirin; Z82.49 Family history of ischemic heart disease and other diseases of the circulatory system
CPT/HCPCS: 96374; 96376; 96361; 99284; 36415; 94640 ×3; 94760; 93005; 85379; 80053; 80048; 82550; 82553; 84484 ×2; 85025 ×2; 85610; 85730; 71046; G0378 ×2; J2930 ×2

== ENCOUNTER → 2024-11-14 | Outpatient (CLI) | payer MEDICARE ==
[2024-11-14 15:18] LABS: Basophils # (A) 0.12 X 10*3/uL (0.00-0.10); Basophils % (A) 1.1 %; Eosinophils # (A) 0.19 X 10*3/uL (0.04-0.35); Eosinophils % (A) 1.8 %; HCT 44.7 % (39.6-50.0); HGB 14.4 g/dL (13.0-17.0); Lymphocytes # (A) 3.45 X 10*3/uL (0.90-5.00); Lymphocytes % (A) 32.1 %; MCH 30.2 pg (27.0-32.0); MCHC 32.2 g/dL (32.0-37.0); MCV 93.7 FL (80.0-97.0); Mean Platelet Volume 10.2 FL (9.5-12.2); Monocytes # (A) 1.19 X 10*3/uL (0.20-1.00); Monocytes % (A) 11.1 %; NRBC Per 100 WBC 0 X 10*3/uL (0.00-0.01); Neutrophils # (A) 5.45 X 10*3/uL (1.80-7.70); Neutrophils % (A) 50.6 %; Platelet Count 358 X 10*3/uL (140-440); RBC 4.77 X 10*6/uL (4.40-5.60); RDW 12.1 % (11.5-14.5); WBC 10.75 X 10*3/uL (4.50-10.00)
[2024-11-14 15:51] LABS: ALT 22 U/L (10-49); AST 16 U/L (14-35); BUN/Creat Ratio 21.78 Ratio (12.00-20.00); Blood Urea Nitrogen 19.6 mg/dL (9.0-27.0); Calcium 9.5 mg/dL (8.7-10.3); Carbon Dioxide 27.1 mmol/L (21.6-31.8); Chloride 102 mmol/L (96-109); Glucose 95 mg/dL (70-110); LDL Cholesterol,Calculated 44.6 mg/dL (0.0-131.0); Sodium 140 mmol/L (135-145)
== END | disposition home or self-care (01) ==
LOC: LABWHC1 11:53
PROVIDERS: ATTEND Family Medicine
DX: I10 Essential (primary) hypertension (principal); E78.2 Mixed hyperlipidemia; R73.03 Prediabetes
CPT/HCPCS: 36415; 80048; 80061; 83036; 84450; 84460; 85025